=== PATIENT | male | born 1990 | race Caucasian/White ===

== ENCOUNTER 2016-11-12 11:59 | Emergency (ER) | payer BC ==
[2016-11-12 12:12] VITALS: BP 111/55; TEMP 98.7; BMI 21.4
--- NOTE | 2016-11-12 12:48 | PDOC ---
History of Present Illness - General Chief Complaint: Psychiatric Stated Complaint: ANXIETY Time Seen by Provider: 11/12/16 12:27 History Source: Patient Exam Limitations: No Limitations - History of Present Illness Initial Comments: 11/12/16 12:48 CHIEF COMPLAINT: Anxiety HISTORY OF PRESENT ILLNESS: This is a 26 year old male with a history of anxiety and depression who presents to the ED with his fiance complaining of worsening of symptoms. He states that his depression and anxiety were initially triggered by the of his brother and by relationship problems. He was prescribed Zoloft and hydroxyzine by his PCP and has been taking it for about one month, but reports no improvement in symptoms. He is drinking alcohol daily for relief. He denies drug use. He has occasional thoughts of suicide, but no plan and states he would never act on them. He denies auditory or visual hallucinations. PCP is Dr. Okeefe in the [place] Patient previously followed with a therapist, but discontinued Vital signs on arrival are all within normal limits. REVIEW OF SYSTEMS: GENERAL/CONSTITUTIONAL: No fever or chills. No weakness. No weight change. HEAD, EYES, EARS, NOSE AND THROAT: No change in vision. No ear pain or discharge. No sore throat. CARDIOVASCULAR: No chest pain or palpitations. RESPIRATORY: No cough, wheezing, or shortness of breath. GASTROINTESTINAL: No nausea, vomiting, diarrhea or constipation. GENITOURINARY: No dysuria, frequency, or change in urination. MUSCULOSKELETAL: No joint or muscle swelling or pain. No neck or back pain. SKIN: No rash or easy bruising. NEUROLOGIC: No headache, vertigo, loss of consciousness, or loss of sensation. PSYCHIATRIC: See HPI. ENDOCRINE: No increased thirst. No abnormal weight change. HEMATOLOGIC/LYMPHATIC: No anemia, easy bleeding, or history of blood clots. ALLERGIC/IMMUNOLOGIC: No hives or skin allergy. No latex allergy. PHYSICAL EXAM: GENERAL: The patient is awake, alert, and fully oriented, in no acute distress. HEAD: Normal with no signs of trauma. ENT: Pupils equal, round and reactive to light, extraocular movements intact, sclera anicteric, conjunctiva clear. Neck supple. LUNGS: Clear to auscultation bilaterally. Normal excursion. No respiratory distress or use of accessory muscles. CV: RRR, S1/S2, no MRG. Cap refill < 2 sec. ABDOMEN: Soft, non-distended, non-tender. EXTREMITIES: Normal range of motion, no edema. NEUROLOGICAL: Normal speech, normal gait. CN II-XII grossly intact. PSYCH: Normal mood, somewhat anxious affect. Normal insight and judgment. SKIN: Warm, dry, normal turgor, no rashes or lesions noted. Past History - Past Medical History Allergies/Adverse Reactions: Allergies Allergy/AdvReac Type Severity Reaction Status Date / Time No Known Allergies Allergy Verified 11/12/16 12:12 Home Medications: Ambulatory Orders Hydroxyzine Pamoate [Vistaril -] 25 mg PO DAILY 11/12/16 Sertraline HCl [Zoloft] 25 mg PO DAILY 11/12/16 Sertraline HCl [Zoloft] 25 mg PO DAILY #7 tablet 11/12/16 Psychiatric Problems: Yes (anxiety,ocd) Other medical history: arthritis - Psycho/Social/Smoking Cessation Hx Anxiety: Yes Suicidal Ideation: Yes (has thoughts but reports he does not want to kill himself.) Smoking History: Never smoked Hx Alcohol Use: Yes (daily) Drug/Substance Use Hx: Yes Substance Use Type: Alcohol, Marijuana *Physical Exam - Vital Signs Last Vital Signs Temp Pulse Resp BP Pulse Ox 98.7 F 75 18 111/55 97 11/12/16 12:08 11/12/16 12:08 11/12/16 12:08 11/12/16 12:08 11/12/16 12:08 ED Treatment Course - LABORATORY CBC & Chemistry Diagram: 11/12/16 12:40 11/12/16 12:40 Medical Decision Making - Medical Decision Making 11/12/16 14:53 A/P: 26 year old male with worsening anxiety/depression. -Basic labs -Alprazolam 0.25mg po x 1 -Psychiatry consulted; evaluated patient at bedside and cleared for discharge. Recommend PCP followup for increase in Zoloft dose. Patient to be dc'd home in company of [employer]. 11/12/16 15:05 Patient is requesting a refill of Zoloft - I will send a one week supply. *DC/Admit/Observation/Transfer Diagnosis at time of Disposition: Anxiety - Discharge Dispostion Disposition: HOME Condition at time of disposition: Stable Admit: No - Prescriptions Prescriptions: Sertraline HCl [Zoloft] 25 mg PO DAILY #7 tablet - Referrals Referrals: Kalin Mcdonald MD [Staff Physician] - Call tomorrow (Psychiatry) - Patient Instructions Printed Discharge Instructions: DI for Anxiety -- Adult Additional Instructions: -Continue your prescribed medications -Follow up with your primary care doctor- we recommend an increase in your Zoloft dose -Return here for suicidal thoughts or any other concerning symptoms
[2016-11-12] MEDS ORDERED: ALPRAZolam 0.25 MG TABLET PO ONE (12:57)
[2016-11-12] MEDS ORDERED: ALPRAZolam 0.25 MG TABLET ONE (13:01)
[2016-11-12 13:26] LABS: BASOPHIL 0.4 % (0-2.0); MCH 29.5 pg (25.7-33.7); MCHC 33.4 g/dl (32.0-35.9); MEAN CELL VOLUME 88.5 fl (80-96); MEAN PLT VOLUME 7.6 fl (7.5-11.1); NEUTROPHILS 62.1 % (42.8-82.8); PLATELET COUNT 167 K/MM3 (134-434); RDW 13.1 % (11.9-15.9); WHITE BLOOD COUNT 5.2 K/mm3 (4.0-10.0)
[2016-11-12 14:01] LABS: ANION GAP 9 (8-16); BILIRUBIN,TOTAL 0.5 mg/dL (0.2-1.0); CALCIUM 9.1 mg/dL (8.5-10.1); CO2 27 mmol/L (21-32); COCKROFT - GAULT 159.26; CREATININE 0.7 mg/dL (0.7-1.3); GLUCOSE,RANDOM 79 mg/dL (74-106); SGPT/ALT 33 U/L (12-78); TOT PROT 7.2 g/dl (6.4-8.2)
[2016-11-12 14:05] LABS: ALK PHOS 74 U/L (45-117); SGOT/AST 18 U/L (15-37)
[2016-11-12 15:06] VITALS: PULSE 60
[2016-11-12 15:13] LABS: THYROID STIMULATING HORMONE 2.23 uIU/ml (0.358-3.74)
--- NOTE | 2016-11-13 09:21 | EKG ---
Test Reason : Blood Pressure : / mmHG Vent. Rate : 073 BPM Atrial Rate : 073 BPM P-R Int : 148 ms QRS Dur : 100 ms QT Int : 376 ms P-R-T Axes : 052 093 059 degrees QTc Int : 414 ms NORMAL SINUS RHYTHM INCOMPLETE RIGHT BUNDLE BRANCH BLOCK POSSIBLE RIGHT VENTRICULAR HYPERTROPHY ABNORMAL ECG NO PREVIOUS ECGS AVAILABLE Confirmed by LEYLA BURNHAM MD ([id number]) on 11/13/2016 9:20:48 AM Referred By: Confirmed By:LEYLA BURNHAM MD
== END 2016-11-12 15:16 | disposition home or self-care (01) ==
LOC: JER 11:59
DX: F41.9 Anxiety disorder, unspecified (principal); R45.851 Suicidal ideations
CPT/HCPCS: 36415; 80053; 84443; 85025; 93005; 93010; 99283-25